=== PATIENT | female | born 2000 | race Caucasian/White ===

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

== ENCOUNTER 2018-08-26 21:24 | Emergency (ER) | payer OTHER ==
[~2018-08-26] VITALS: Ht 170.2 cm; Wt 88.0 kg
[2018-08-26 21:27] VITALS: RESP 18; Ht 170.2 cm; Wt 88.0 kg
[2018-08-26] MEDS ORDERED: OXYCODONE/ACETAMINOPHEN (5/325) TAB PO ONE (23:00)
--- NOTE | 2018-08-27 01:08 | ERD ---
ER Documentation Chief Complaint Chief Complaint achy throat today, hurts to swallow HPI 17-year-old female with a history of daily crystal meth use presents with a history of sore throat since this morning. States that the pain is located under her chin on the left side. States it is very painful. States that it hurts to swallow. Denies drooling, denies trismus, denies cough and fevers. Denies past medical history. Denies allergies. Does meth amphetamine daily. Denies medications. ROS All systems reviewed and are negative except as per history of present illness. Medications Home Meds Active Scripts Amoxicillin/Potassium Clav (Amox-Clav 875-125 mg Tablet) 875-125 mg Tab, 1 TAB PO BID for Infection for 7 Days, #14 TAB 0 Refills Prov:BARBIE HERNANDEZ 08/27/18 Ibuprofen* (Motrin*) 600 Mg Tab, 600 MG PO Q6 for PAIN, #30 TAB 0 Refills Prov:MARIALUISABARBIE NAVARRETE 08/27/18 Allergies Allergies: Coded Allergies: No Known Allergy (Unverified , 08/26/18) PMhx/Soc Medical and Surgical Hx: pt denies Medical Hx, pt denies Surgical Hx History of Surgery: No Anesthesia Reaction: No Hx Neurological Disorder: No Hx Respiratory Disorders: No Hx Cardiac Disorders: No Hx Psychiatric Problems: No Hx Miscellaneous Medical Probl: No Hx Alcohol Use: Yes (SOCIAL) Hx Substance Use: Yes (METH) Hx Tobacco Use: No Smoking Status: Never smoker FmHx Family History: No diabetes, No coronary disease, No other Physical Exam Vitals Vital Signs Date Temp Pulse Resp B/P (MAP) Pulse Ox O2 O2 Flow FiO2 Time Delivery Rate 08/27/18 73 117/68 01:39 (84) 08/26/18 98.7 67 18 170/97 67 21:27 (121) Physical Exam General: Well developed, well nourished. No acute distress. Throat: No tonsillar erythema, edema, or exudates noted bilaterally. No masses, lesions, or abscesses noted. Uvula midline. Airway patent. Mouth: Mucus membranes moist. No drooling, ulcers, bleeding, or lesions, noted. Neck: Left submandibular area TTP to palpation but no masses, erythema, or edema noted. No lymphadenopathy noted. Tracheal midline, no goiter or nodules noted. No JVD. Heart: RR w/o murmur, rubs, or gallops. Lungs: Clear to auscultation bilaterally w/o wheezes, crackles, rhonchi. Symmetric rise and fall. Equal breath sounds. Psych: Normal mood and affect. Result Diagram: 08/26/188 08/26/188 Results 24 hrs Laboratory Tests Test 08/26/18 23:18 08/26/18 23:54 White Blood Count 7.3 10^3/ul Red Blood Count 4.16 10^6/ul Hemoglobin 12.2 g/dl Hematocrit 37.6 % Mean Corpuscular Volume 90.4 fl Mean Corpuscular Hemoglobin 29.3 pg Mean Corpuscular Hemoglobin Concent 32.4 g/dl Red Cell Distribution Width 12.1 % Platelet Count 254 10^3/UL Mean Platelet Volume 8.9 fl Immature Granulocytes % 0.300 % Neutrophils % 61.0 % Lymphocytes % 29.0 % Monocytes % 6.2 % Eosinophils % 2.9 % Basophils % 0.6 % Nucleated Red Blood Cells % 0.0 /100WBC Immature Granulocytes # 0.020 10^3/ul Neutrophils # 4.4 10^3/ul Lymphocytes # 2.1 10^3/ul Monocytes # 0.5 10^3/ul Eosinophils # 0.2 10^3/ul Basophils # 0.0 10^3/ul Nucleated Red Blood Cells # 0.0 10^3/ul Sodium Level 142 mmol/L Potassium Level 4.1 mmol/L Chloride Level 102 mmol/L Carbon Dioxide Level 29 mmol/L Anion Gap 11 Blood Urea Nitrogen 7 mg/dl Creatinine 0.55 mg/dl Est Glomerular Filtrat Rate mL/min > 60 mL/min Glucose Level 93 mg/dl Calcium Level 9.4 mg/dl Total Bilirubin 0.0 mg/dl Direct Bilirubin 0.00 mg/dl Indirect Bilirubin 0.0 mg/dl Aspartate Amino Transf (AST/SGOT) 21 IU/L Alanine Aminotransferase (ALT/SGPT) 21 IU/L Alkaline Phosphatase 66 IU/L Total Protein 7.6 g/dl Albumin 4.4 g/dl Globulin 3.20 g/dl Albumin/Globulin Ratio 1.37 POC Beta HCG, Qualitative NEGATIVE Current Medications Medications Dose Sig/Shonda Start Time Status Last (Trade) Ordered Route PRN Stop Time Admin Dose Reason Admin Oxycodone/ 1 tab ONCE ONCE 08/26/18 DC 08/27/18 Acetaminophen PO 23:00 08/26/18 00:37 (Percocet 23:09 (5/ 325)) Procedures/MDM ER Course: CBC, CMP, HCG, Cervical CT - All WNL DIAGNOSTIC IMAGING REPORT Patient: PIO MISHRA : 2000 Age: 17 Sex: F MR #: [id number] DOS: 08/26/18 2257 Ordering MD: BARBIE HERNANDEZ Location: [facility] Room/Bed: PROCEDURE: CT soft tissue neck without contrast CLINICAL INDICATION: Soft tissue pain, possible left mass TECHNIQUE: The study was performed utilizing a multidetector CT scanner. Direct thin section helically acquired axial sections were obtained through the neck in the axial plane. Coronal and sagittal reformations were obtained. The images were reviewed on a PACS workstation. The total CTDIvol is 8 mGy and the DLP is 235 mGy-cm. 3-D reconstructions were not performed on the radiologist's workstation and evaluated for fractures. DICOM images are available. One or more of the following dose reduction techniques were utilized: 1.) Automated exposure control 2.) Adjustment of the mA +/- kV according to patient's size 3.) Use of iterative reconstruction technique. COMPARISON: No prior studies are available for comparison. FINDINGS: The nasopharynx, oropharynx, hypopharynx, and larynx are all normal in appearance. The thyroid gland is normal in size with no focal mass lesions seen. The submandibular and parotid glands are unremarkable and normal in appearance. No pathologically enlarged lymph nodes are detected. Overall, fat planes in the neck are well maintained. Arterial and venous structures in the neck appear unremarkable. No osteolytic or blastic lesion is evident. IMPRESSION: 1. Normal unenhanced CT soft tissue neck. RPTAT:AAJJ Physician Cyrus Date Time Electronically viewed and signed by Physician Cyrus on 08/27/2018 01:12 GW/ CC: RADHA HERNANDEZEL [id number] MDM: 17-year-old female with a history of daily crystal meth use presents with a history of sore throat since this morning. States that the pain is located under her chin on the left side. States it is very painful. States that it hurts to swallow. Denies drooling, denies trismus, denies cough and fevers. I had suspicion for possible abscess or infection in the submandibular area based on the exam findings so CT was ordered. CT was within normal limits. Therefore, I have low suspicion for epiglottitis, peritonsilar abscess, ludwigs angina, retropharyngeal abscess, or other emergent etiologies. Given patient's history of drug use I decided to prescribe her Augmentin to reduce the risk of any kind of infection. Advised patient to seek counseling for her drug abuse problem. Patient discharged with strict ER precautions. Patient advised to follow up with PMD. All questions answered at discharge. Departure Diagnosis: Primary Impression: Sore throat Condition: Stable BARBIE HERNANDEZ Aug 27, 2018 01:08
[2018-08-27] MEDS ORDERED: IBUP-1542 PO (01:20)
[2018-08-27] MEDS ORDERED: AMOX1TAB10 PO (01:23)
[2018-08-27 01:39] VITALS: BP 117/68; PULSE 73
== END 2018-08-27 01:40 | disposition home or self-care (01) ==
LOC: FTE 21:24
DX: J02.9 Acute pharyngitis, unspecified (principal)
CPT/HCPCS: 70490; 80053; 81025; 85025; Z7502; Z7610